=== PATIENT | female | born 1990 | race Caucasian/White ===

== ENCOUNTER 2024-03-17 12:32 | Outpatient (CLI) | payer OTHER, SELFPAY ==
--- NOTE | ~2024-03-17 | US_ITS ---
EXAMINATION: US OB <= 14 weeks fetus DATE: 03/17/2024 13:22 INDICATION: . Uncertain dates. TECHNIQUE: Real-time transabdominal and transvaginal pelvic ultrasound was performed. COMPARISON: None. FINDINGS: TRANSABDOMINAL ULTRASOUND: The uterus measures 10.4 x 7.7 x 9.5 cm. TRANSVAGINAL ULTRASOUND: There is an intrauterine gestational sac. The crown rump length measur es 4.8 cm, which correlates with an estimated gestational age of 11 weeks and 4 day(s) (+/-) 1 week(s ) and 0 day(s). heart motion is identified measuring 144 beats per minute (bpm) by M-mode Doppl er. The right ovary measures 4.0 x 1.9 x 2.3 cm. The left ovary measures 3.8 x 1.5 x 2.1 cm. There is no free fluid in the pelvis. IMPRESSION: 1. Single living intrauterine gestation with estimated date of delivery of 10/02/2024. Reviewed, dictated and finalized at location A. INSPECTOR IMPRESSION: 1. Single living intrauterine gestation with estimated date of delivery of 10/02.
== END 2024-03-17 12:33 | disposition home or self-care (01) ==
PROVIDERS: Visit Provider Obstetrics & Gynecology
DX: N94.89 Other specified conditions associated with female genital organs and menstrual cycle (principal)
CPT/HCPCS: 76801

== ENCOUNTER 2024-09-14 18:38 | Inpatient (IN) | payer OTHER, SELFPAY ==
[2024-09-14] VITALS (19 sets, daily range): BP systolic 99–110; BP diastolic 59–76; PULSE 68–109; TEMP 36.8; O2SAT 97–99; BMI 21.7
--- OUTSIDE RECORDS SUMMARY | 2024-09-14 18:44 | XMS_ITS | Encounter Summary ---
Author Organization [facility] Address [address] [place] [address] Care Team Providers Care Supervisor Ride Assembly Name Role Phone Unknown, Provider Primary Care Provider Unavaila ble Reason for Referral * (Routine) - Open Specialty Diagnoses / Procedures Referred By Contac t Referred To Contact Diagnoses Diet controlled gestational diabetes mellitus (GDM) in third trimester (HCC) Poor growth affecting management of mother, antepartum, single or unspecified fetus (HCC) 37 weeks gestation of (HCC) Procedures Biophysical Profile w NST Gwyn Lassiter MD [address] [facility] [employer] [address] [address] Phone: tel: fax: Referral ID Status Reason Start Date Expiration Date Visits Re quested Visits Authorized [id number] Open 09/14/2024 09/14/2025 3 3 * (Routine) - Open Specialty Diagnoses / Procedures Referred By Contac t Referred To Contact Diagnoses Diet controlled gestational diabetes mellitus (GDM) in third trimester (HCC) Poor growth affecting management of mother, antepartum, single or unspecified fetus (HCC) 37 weeks gestation of ([facility]) Procedures Biophysical Profile w JOYAT Gwyn Lassiter MD [address] [place] [address] Phone: tel: fax: Referral ID Status Reason Start Date Expiration Date Visits Re quested Visits Authorized [id number] Open 09/14/2024 09/14/2025 3 3 Reason for Visit * Reason Comments Ultrasound Follow-up Maternal Medicine Biophysical Profile Non-stress Test Diabetes * (Routine) - Open Specialty Diagnoses / Procedures Referred By Contac t Referred To Contact Diagnoses Diet controlled gestational diabetes mellitus (GDM) in third trimester (HCC) Poor growth affecting management of mother, antepartum, single or unspecified fetus (HCC) 37 weeks gestation of (HCC) Procedures Biophysical Profile w NST Gwyn Lassiter MD [address] [place] [address] Phone: tel: fax: Referral ID Status Reason Start Date Expiration Date Visits Re quested Visits Authorized [id number] Open 09/14/2024 09/14/2025 3 3 Encounter Details Date Type Department Care Team (Late st Contact Info) Description 09/14/2024 1:45 PM CDT Hospital Encounter [facility] Maternal & Care [address] [place] [address] Gwyn Lassiter MD [address] [facility] [address] [place] [address] Social History Tobacco Use Types Packs/Day Years Used Date Smoking Tobacco: Never Assessed AUDIT-C Answer Date Recorded Q1: How often do you have a drink containing alcohol? Never 08/12/2024 Q2: How many drinks containi ng alcohol do you have on a typical day when you are drinking? Patient does not drink Q3: How often do you have si x or more drinks on one occasion? Never 08/12/2024 Overall Financial Resource Strain (CARDIA) Answe r Date Recorded How hard is it for you to pa y for the very basics like food, housing, medical care, and heating? Not hard at all 08/12/2024 [facility] of Occupat ional Health - Occupational Stress Questionnaire Answer Date Recorded Do you feel stress - tense, restless, nervous, or anxious, or unable to sleep at night because your mind is troubled all the time - these days? Not at all 08/12/2024 Hunger Vital Sign Answer Date Recorded Within the past 12 months, y ou worried that your food would run out before you got the money to buy more. Never true 08/13/19 25 Within the past 12 months, t he food you bought just didn't last and you didn't have money to get more. Never true 08/12/2024 PRAPARE - Transportation Answer Date Re corded In the past 12 months, has l ack of transportation kept you from medical appointments or from getting medications? No 07/28 In the past 12 months, has l ack of transportation kept you from meetings, work, or from getting things needed for daily living? No 08/12/2024 Housing Stability Vital Sign Answer Rafael e Recorded In the last 12 months, was t here a time when you were not able to pay the mortgage or rent on time? No 08/12/2024 Number of Times Moved in the Last Year Not on fi le 08/12/2024 Homeless in the Last Year Not on file 2024 Estimated Date of Delivery Comme nts Yes 10/02/2024 Based on last me nstrual period of 12/27/2023 Sex and Gender Information Value Date Recorded Sex Assigned at Not on file Legal Sex Female 5:44 PM [employer] Gender Identity Not on file Sexual Orientation Not on file documented as of this encounter Last Filed Vital Signs Vital Sign Reading Time Taken Comments Blood Pressure 116/58 09/14/2024 2:15 PM CDT Pulse 64 09/14/2024 2:15 PM CDT Temperature - - Respiratory Rate - - Oxygen Saturation - - Inhaled Oxygen Concentration - - Weight 54.4 kg (120 lb) 09/14/2024 2:15 PM CDT Height - - Body Mass Index 22.67 09/07/2024 10:30 AM CDT documented in this encounter Progress Notes * Rosana Richmond RN - 09/14/2024 4:14 PM CDT OB office called regarding MFM recommendation to have pt be admitted to begin process for delivery this evening. Report given to OB office nurse-they will call L&D and notify of the pt coming in.Pt aware to go home to get her bags and go to the hospital for delivery. * Rhonda Donnelly RN - 09/14/2024 2:57 PM CDT Patient here today for NST/BPP, INTERNAL CONTROLS SPECIALIST, US performed at [place] 37w3d. Patient reports positive movement. Denies cramping, contractions, vaginal bleeding, and leakage of fluid. Patient denies headache, epigastric pain and visual changes. VS per flowsheet. See ultrasound and INTERNAL CONTROLS SPECIALIST reports for details and POC. Patient has no concerns today. Reports feeling well overall. NST reviewed by INTERNAL CONTROLS SPECIALIST. Rhonda Donnelly RN 09/14/2024 2:58 PM * Denise Cline APRN-REFUSE COLLECTOR - 09/14/2024 2:41 PM CDT WHNP follow up visit Kristen Medel is a 34 year old 37w3d. We are following her for GDM and SGA. She has no complaints today. She emailed blood sugar logs for review on Thursday. She reports good FM, no bleeding, no LOF, no DC, no cramps/contractions/pain/pressure, no CHA's, vision changes, or swelling. Genetic screening/testing: Low Risk NIPT, Female Her is complicated by: Patient Active Problem List Diagnosis Date Noted Gestational diabetes mellitus (GDM) in third trimester (HCC) 08/09/2024 Priority: Not Prioritized Exam: BP 116/58 Pulse 64 Wt 54.4 kg (120 lb) General: NAD Abdomen: soft, NT Extremities: equal in size and width bilaterally, NT, no sign of edema FHT: per US Urine dip: sample not yet produced Labs: Blood type: A+ Antibody screen: neg GTT -- 80 mg/l fasting; 200 mg/dl 1 hour; 168 mg/dl 2 hour; 129 mg/dl 3 hour GCT -- 151mg/dl US: Please see report for details. Impressions/Recs 1. IUP (Intrauterine ) at 37w3d 2. GDMA1 She emailed logs on Thursday and were reviewed at that time. She is currently diet controlled and no changes were indicated at that time. Logs reveal good glycemic control. Patient is reading labels and counting carbs. Will continue weekly review. After hours triage number provided S/p nutrition counseling at initial visit. We reviewed the target glucose ranges to minimize excessive growth and optimize outcomes. These are: Fasting 60-90 mg/dl; preprandial 60-100 mg/dl; and 1-hour postprandial <130 mg/dl. Antepartum testing Recommend BID kick counts. testing currently driven by SGA Serial Ultrasound assessment of growth is recommended. Timing of Delivery To be determined Route of delivery Vaginal delivery may be anticipated unless the fetus is excessively large or there is an abnormal presentation. Diabetes is associated with about a six-fold risk for shoulder dystocia. Operative vaginal deliveries should be approached with caution. Glucose control in labor During labor, capillary glucose values should be checked every 1-2 hours (depending on their stability). Maintenance fluids with 5% dextrose are infused to prevent starvation ketosis. If the glucose values exceed 110 mg/dl, an insulin infusion is recommended. Long-term diabetes surveillance The risk of this patient developing diabetes outside of over the next five years may be as high as 50%. I recommend that she have a 2 hr 75 gram load gtt at 6 to 8 weeks and counseling about ways to minimize her risk. If her testing is normal, annual glucose screening by her primary care physician is advised. In any future pregnancies, she should have a HGBA1C drawn with her p renatal panel and if wnl, then a 1 hr gtt at 14-18 weeks. If WNL, then repeat 1 hr gtt at 26-28 weeks. 3. SGA MCA dopplers abnormal today D/W Dr. Hardin and delivery is recommended. OB office aware and will notify the hospital about patient. 4. We reviewed kick counts (BID), as well as labor and preeclampsia signs and symptoms. 5. RTC: delivery recommended 6. Keep all appointments with primary OB I spent 30 minutes with the patient, greater than 50% of the time was spent face to face in discussion with the patient the remainder of the time was spent in chart prep and data review. The patient is to follow up with her primary obstetrical care provider for her routine care and acute OB care including delivery as clinically indicated. Once again, we appreciate the opportunity to assist you in the care of your patient. If issues arise for which I can be of help before her next visit here, please contact me directly, or contact one of the [facility] physicians. MONTSERRAT Chatman 09/14/2024 2:42 PM * Sugar Ying - 09/14/2024 2:20 PM CDT Reviewed log received yesterday. Did not review logs today. A1GDM presents with her mother for assessment. Has no questions or concerns at this time. documented in this encounter Plan of Treatment Scheduled Orders Name Type Priority Associated Diagnoses Orde r Schedule Biophysical Profile w NST MATRNL MED Routine Diet controlled gestational diabetes mellitus (GDM) in third trimester (HCC) Poor growth affecting management of mother, antepartum, single or unspecified fetus (HCC) 37 weeks gestation of (HCC) E- 7 Days for 3 Occurrences starting 09/14/2024 until 09/14/2025, 1 completed documented as of this encounter Procedures Procedure Name Priority Date/Time Associated Diagnosis Comments BIOPHYSICAL PROFILE W NST Routine 09/14/2024 3:33 PM CDT Diet controlled gestational diabetes mellitus (GDM) in third trimester (HCC) Poor growth affecting management of mother, antepartum, single or unspecified fetus (HCC) 37 weeks gestation of (HCC) documented in this encounter Results * Biophysical Profile w NST (09/14/2024 3:33 PM CDT) Linked Results Indication ======== Gestational diabetes mellitus (GDM) A1 Small for gestational age (SGA) growth History ====== OB History 1 Lab Tests Test Date Result NIPT Low risk, Female Maternal Assessment Physical Exam Height 155 cm, 5 ft 1 in. Weight 54 kg, 120 lb. Initial weight 52 kg, 115 lb. BMI 22.67 kg/m . Initial BMI 21.73 kg/m . Weight gain 2 kg, 5 lb Method ====== Transabdominal ultrasound examination. View: Sufficient ========= Gomez . Number of fetuses: 1 Dating ====== Date Details Gest. age MARLON LMP 12/27/2023 37 w + 3 d 10/02/2024 Stated MARLON 37 w + 3 d 10/02/2024 Assigned dating based on the LMP, selected on 08/09/2024 37 w + 3 d 10/02/2024 General Evaluation Cardiac activity present. FHR 143 bpm. Presentation: cephalic Placenta: Placental site: anterior Amniotic Fluid Assessment ==== Amount of AF: normal MVP 3.4 cm. ALICIA 9.8 cm. Q1 3.4 cm, Q2 1.2 cm, Q3 2.0 cm, Q4 3.1 cm Biophysical Profile 2: breathing movements 2: Gross body movements 2: tone 2: Amniotic fluid volume NST: reactive 10/10 Biophysical profile score Non Stress Test NST interpretation: reactive. Baseline FHR 130 bpm. Baseline variability: moderate. Accelerations: present. Decelerations: absent. Uterine activity: absent Biometry BPD 90.3 mm 36w 4d 45% Hadlock HC 310.5 mm 34w 5d <1% Hadlock AC 297.8 mm 33w 5d <1% Hadlock Femur 68.0 mm 35w 0d 4% Hadlock Humerus 56.8 mm 33w 0d 1% Freeman HC / AC 1.04 Weight Calculation: EFW 2,435 g 5% Hadlock EFW (lb,oz) 5 lb 6 oz EFW by Hadlock ([id number]) SGA Growth Overview Exam date GA BPD (mm) HC (mm) AC (mm) FL (mm) HL (mm) EFW (g) 08/09/2024 32w 2d 80.9 48% 290 9% 264.1 8% 61.5 27% 51.9 8% 1732 15% 08/31/2024 35w 3d 85.9 32% 305.7 3% 287.1 3% 66.7 18% 54.8 3% 2210 9% 09/14/2024 37w 3d 90.3 45% 310.5 <1% 297.8 <1% 68 4% 56.8 1% 2435 5% Anatomy The following structures appear normal: Abdomen Stomach. Kidneys. Bladder. sex: female. Doppler Umbilical Artery: normal PI 0.66 18% Anita S / D 1.93 20% Anita Mid Cerebral Artery: abnormal PI 1.20 3% Ebbing PS 68.08 cm/s PS 1.19 MoM CPR PI 1.82 22% Ebbing Impression ========= Single, live intrauterine at 37w 3d The size is SGA. The amniotic fluid volume is normal. The biophysical profile is 10/10. The umbilical artery Doppler is normal. The MCA Doppler is abnormal, reduced PI indicative of cephalization of flow. Comment ======== ultrasound alone cannot detect all structural, genetic, or functional , placental, or maternal abnormalities Follow-up ======== Delivery recommended tonight due to abnormal MCA. Coding ====== Procedures 58338: [place] [address]: Biophysical Profile W NST 85038: Umbilical Doppler 28598: MCA Doppler [employer] PACS Anatomical Region Laterality Modality Other 09/14/2024 3:33 PM CDT us Gwyn Lassiter MD [facility] ORDERABLES Edited Result - Final documented in this encounter Visit Diagnoses Diagnosis Diet controlled gestational diabetes mellitus (GDM) in third trimester (HCC)- Primary Poor growth affecting management of mother, antepartum, single or unspecified fetus (HCC) Encounter for ultrasound ([facility]) Encounter for routine screening for malformation using ultrasonics 37 weeks gestation of (HCC) state, incidental Encounter for other screening follow-up ([facility]) documented in this encounter Care Teams Supervisor Ride Assembly Relationship Specialty Start Date End Date Unknown, Provider PCP - General 07/28/24 documented as of this encounter
--- OUTSIDE RECORDS SUMMARY | 2024-09-14 18:44 | XMS_ITS | Clinical Summary ---
Author Organization [facility] Address [address] [place] [address] Care Team Providers Care Paint Mixer Hand Name Role Phone Unknown, Provider Primary Care Provider Unavaila ble Source Comments [facility],non-owned Affiliates and Associated Physician Practices is amultiple site organization consisting of ambulatory clinics and hospital sitesin [place], [place], [place] and [place]. This disclosure is being madepursuant to the Care Everywhere program and may not contain all information available regarding this patient. Last updated 17.[facility] Allergies Active Allergy Reactions Criticality Noted Date Comments Amoxicillin Urticaria Medium 07/28/2024 Medications * Be aware that medications may not be up to date on this document. Alwaysverify current medications with the patient. Vit-Fe Fumarate-FA ( vitamin) 28-0.8 MG tablet Take 1 (one) tablet by mouth once daily Active ferrous gluconate 324 (38 Fe) MG tablet Take 1 (one) tablet by mouth once daily OTC Active Active Problems Problem Noted Date Diagnosed Date [facility]ational diabetes [facility] Estimated Date of Delivery Comme nts Yes 10/02/2024 Based on last me nstrual period of 12/27/2023 Encounters Date Type Department Care Team Description 09/14/2024 1:45 PM CDT Hospital Encounter [facility] Women's Health Maternal & Care [address] [place] [address] Gwyn Lassiter MD 09/07/2024 9:38 AM CDT - 09/07/2024 11:59 PM CDT Hospital Encounter [facility] Maternal & Care [address] [place] [address] Gwyn Lassiter MD Discharge Disposition: Home or Self Care 08/31/2024 9:36 AM CDT - 08/31/2024 11:59 PM CDT Hospital Encounter [facility] Maternal & Care [address] [place] [id number] Maikel Waller DO Head, Bailee Vick MD 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 [place] [id number] Carter Avelar MD Discharge Disposition: Home or Self Care 08/24/2024 12:47 PM CDT Hospital Encounter [facility] [address] [place] [address] Carter Avelar MD Discharge Disposition: Home or Self Care 08/24/2024 Travel 08/17/2024 12:52 PM CDT - 08/17/2024 11:59 PM CDT Hospital Encounter [facility] UN[facility] [address] [place] [id number] Carter Avelar MD Discharge Disposition: Home or Self Care 08/17/2024 12:51 PM CDT Hospital Encounter [facility]ATION UN[facility] [address] [place] [address] Carter Avelar MD Discharge Disposition: Home or Self Care 08/17/2024 12:51 PM CDT Hospital Encounter [facility]/ [facility] [address] [place] [address] Carter Avelar MD Discharge Disposition: Home or Self Care 08/17/2024 12:50 PM CDT Hospital Encounter [facility] UN[facility] [address] [place] [address] Adalid Van MD Discharge Disposition: Home or Self Care 08/17/2024 Travel 08/11/2024 Telephone [facility] [address] [place] [address] Analy Mckeon RN Scheduling 08/09/2024 1:34 PM CDT - 08/09/2024 11:59 PM CDT Hospital Encounter [facility] Maternal & Care [address] [place] [address] Ladi Abdalla MD Discharge Disposition: Home or Self Care 07/28/2024 11:05 AM CDT - 07/28/2024 11:59 PM CDT Hospital Encounter [facility] Maternal & Care [address] [place] [address] Jose, Bailee Vick MD Discharge Disposition: Home or Self Care 07/25/2024 Telephone [facility] Maternal & Care [address] [place] [id number] Maria Fernanda rPatt Appointment from Last 3 Months Social History Tobacco Use Types Packs/Day Years [...] and heating? 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 Gender Identity Not on file Sexual Orientation Not on file Last Filed Vital Signs Vital Sign Reading Time Taken Comments Blood Pressure 116/58 09/14/2024 2:15 PM CDT Pulse 64 09/14/2024 2:15 PM CDT Temperature - - Respiratory Rate 16 07/28/2024 11:13 AM CDT Oxygen Saturation - - Inhaled Oxygen Concentration - - Weight 54.4 kg (120 lb) 09/14/2024 2:15 PM CDT Height 154.9 cm (5' 1) 09/07/2024 10:30 AM CDT Body Mass Index 22.67 09/07/2024 10:30 AM CDT Plan of Treatment Health Maintenance Due Date Last Done Comments HIV SCREENING 09/04/2007 HEPATITIS C SCREENING 08/30/2010 DTAP/TDAP/TD VACCINES (1 - Tdap) 09/04/2011 HEPATITIS B VACCINE (1 of 3 - 19+ 3-dose series) 09/04/2011 PAP SMEAR 2013 COVID-19 VACCINE (2023-2 5 season) 2023 DEPRESSION SCREENING 03/30/2024 OB-ONE HOUR GLUCOSE 06/26/2024 OB-TDAP CURRENT 07/03/2024 OB-RHOGAM INJECTION 07/10/2024 OB-GROUP B STREP SCREEN 08/28/2024 INFLUENZA VACCINE (Season Ended) 2024 ZOSTER VACCINE (1 of 2) 2042 HIB VACCINE Aged Out No longer eligi ble based on patient's age to complete this topic HPV VACCINE Aged Out No longer eligi ble based on patient's age to complete this topic MENINGOCOCCAL (Group B) VACC INE SHARED DECISION-MAKING Aged Out No longer eligibl e based on patient's age to complete this topic MENINGOCOCCAL GROUPS A/C/Y/W VACCINE Aged Out No longer eligible b ased on patient's age to complete this topic PNEUMOCOCCAL VACCINE Aged Out No long er eligible based on patient's age to complete this topic Respiratory Syncytial Virus (RSV) Vaccine Pt: or over 60 yrs (No Doses Required) Completed Procedures Procedure Name Priority Date/Time Associated Diagnosis Comments BIOPHYSICAL PROFILE W NST Routine 09/14/2024 3:33 PM CDT Diet controlled gestational diabetes mellitus (GDM) in third trimester (HCC) Poor growth affecting management of mother, antepartum, single or unspecified fetus (HCC) 37 weeks gestation of (HCC) BIOPHYSICAL PROFILE W NST Routine 09/07/2024 9:42 AM CDT Diet controlled gestational diabetes mellitus (GDM) in third trimester (HCC) Poor growth affecting management of mother, antepartum, single or unspecified fetus (HCC) 36 weeks gestation of (HCC) Encounter for ultrasound (HCC) SONOGRAM - COMPLETE Routine 08/31/2024 1 1:29 AM CDT Diet controlled gestational diabetes mellitus (GDM) in third trimester (HCC) Poor growth affecting management of mother, antepartum, single or unspecified fetus (HCC) 35 weeks gestation of (HCC) Encounter for ultrasound (HCC) SONOGRAM - COMPLETE Routine 08/24/2024 1 :07 PM CDT Diet controlled gestational diabetes mellitus (GDM) in third trimester (HCC) Poor growth affecting management of mother, antepartum, single or unspecified fetus (HCC) 35 weeks gestation of (HCC) BIOPHYSICAL PROFILE W NST Routine 08/17/2024 2:02 PM CDT Diet controlled gestational diabetes mellitus (GDM) in third trimester (HCC) URINALYSIS - POCT (IP) BEAKER INTERFACE Routine 08/17/2024 1:33 PM CDT SONOGRAM - COMPLETE Routine 08/09/2024 1 :45 PM CDT 32 weeks gestation of (HCC) Gestational diabetes mellitus (GDM) in third trimester, gestational diabetes method of control unspecified (HCC) from Last 3 Months Results * Biophysical Profile w NST (09/14/2024 3:33 PM CDT) Only the most recent of3 resultswithin the time period is included. Linked Results Indication ======== Gestational diabetes mellitus [...] tone 2: Amniotic fluid volume NST: reactive 01/06 Biophysical profile score Non Stress Test NST [...] 5 lb 6 oz EFW by Hadlock ([id number]) SGA Growth Overview Exam date GA BPD [...] due to abnormal MCA. Coding ====== Procedures 61906: [place] [address]: Biophysical Profile W NST 05916: Umbilical Doppler 20741: MCA Doppler FathomDB PACS Anatomical Region Laterality Modality Other 09/14/2024 3:33 PM CDT Gwyn Lassiter MD [facility] ORDERABLES Edited Result - Final * SONOGRAM - COMPLETE (08/31/2024 11:29 AM CDT) Only the most recent of3 resultswithin the time period is included. Linked Results Indication ======== Gestational diabetes, a1 Small for gestational age fetus on 08/09 (AC 8%, EFW 15%) Incomplete anatomy History ====== OB History 1 Lab Tests Test Date Result NIPT Low risk, Female Maternal Assessment = Physical Exam Height 155 cm, 5 ft 1 in. Weight 55 kg, 121 lb. Initial weight 52 kg, 115 lb. BMI 22.86 kg/m . Initial BMI 21.73 kg/m . Weight gain 3 kg, 6 lb Method ====== Transabdominal ultrasound. View: Sufficient ========= Gomez . Number of fetuses: 1 Dating ====== Date Details Gest. age MARLON LMP 12/27/2023 35 w + 3 d 10/02/2024 Stated MARLON 35 w + 3 d 10/02/2024 Assigned dating based on the LMP, selected on 08/09/2024 35 w + 3 d 10/02/2024 General Evaluation Cardiac activity present. FHR 152 bpm. Presentation: cephalic Placenta: Placental site: anterior Amniotic Fluid Assessment ===== Amount of AF: normal MVP 5.0 cm. ALICIA 15.4 cm. Q1 3.2 cm, Q2 5.0 cm, Q3 4.6 cm, Q4 2.5 cm Biophysical Profile 2: breathing movements 2: Gross body movements 2: tone 2: Amniotic fluid volume NST: reactive 01/06 Biophysical profile score Non Stress Test NST interpretation: reactive. Baseline FHR 130 bpm. Baseline variability: moderate. Accelerations: present. Decelerations: absent Biometry BPD 85.9 mm 34w 4d 32% Hadlock HC 305.7 mm 34w 0d 3% Hadlock AC 287.1 mm 32w 5d 3% Hadlock Femur 66.7 mm 34w 2d 18% Hadlock Humerus 54.8 mm 31w 6d 3% Fereman HC / AC 1.06 Weight Calculation: EFW 2,210 g 9% Hadlock EFW (lb,oz) 4 lb 14 oz EFW by Hadlock ([id number]) SGA Growth Overview = Exam date GA BPD (mm) HC (mm) AC (mm) FL (mm) HL (mm) EFW (g) 08/09/2024 32w 2d 80.9 48% 290 9% 264.1 8% 61.5 27% 51.9 8% 1732 15% 08/31/2024 35w 3d 85.9 32% 305.7 3% 287.1 3% 66.7 18% 54.8 3% 2210 9% Anatomy The following structures appear normal: Abdomen Stomach. Kidneys. Bladder. sex: female. Doppler Umbilical Artery: normal PI 0.82 47% Anita S / D 2.29 38% Anita Mid Cerebral Artery: normal PI 1.78 32% Ebbing PS 59.36 cm/s PS 1.14 MoM CPR PI 2.17 39% Ebbing Impression ========= Single, live intrauterine at 35w 3d The size is SGA. The amniotic fluid volume is normal. The biophysical profile is 10/10. The umbilical artery Doppler is normal. The MCA Doppler is normal. Follow-up ======== Continue weekly testing with BPP/Dopplers Repeat ultrasound evaluation of growth is recommended in 2-3 weeks. Coding ====== Procedures 65617: [place] [address]: Biophysical Profile W NST 04816: Umbilical Doppler 06939: MCA Doppler [facility] FathomDB PACS Anatomical Region Laterality Modality Other 08/31/2024 11:2 9 AM CDT Beckie Pichardo MD [facility] ORDERABLES Edited Result - Final * (ABNORMAL) URINALYSIS - POCT (IP) BEAKER INTERFACE (08/17/2024 1:33 PM CDT) Color UA POCT Dark Yellow Straw, Yellow, Dark Yellow, Light Yellow 08/17/2024 1:35 PM CDT [facility] Clarity UA POCT Clear Clear 1:35 PM CDT [facility] Specific [place] UA POCT 1.020 1.005 - 1.030 08/17/2024 1:35 PM CDT [facility] pH UA POCT 6.5 5.0 - 8.0 pH 08/17/2024 1:35 PM CDT [facility] Protein UA POCT Negative Negative 1:35 PM CDT [facility] Blood UA POCT Negative Negative 08/17/2024 1:35 PM CDT [facility] Leukocyte UA POCT 1+(A) Negative 08/17/2024 1:35 PM CDT [facility] Nitrite UA POCT Negative Negative 1:35 PM CDT [facility] Glucose UA POCT Negative Negative 1:35 PM CDT [facility] Ketone UA POCT 3+(A) Negative 08/17/2024 1:35 PM CDT [facility] Bilirubin UA POCT Negative Negative 08/17/2024 1:35 PM CDT [facility] Urobilinogen UA POCT 1.0 0.1 - 1.0 EU/dL 08/17/2024 1:35 PM CDT [facility] Urine URINE / Unknown 08/17/2024 1 :33 PM CDT 08/17/2024 1:35 PM CDT Adalid Van MD LAB - POINT OF CARE OR DERABLES Final Result Performing Organization Address City/State/[facility] Co de Phone Number [facility] [address] [place] [address] from Last 3 Months Insurance [employer] Care Teams Paint Mixer Hand Relationship Specialty Start Date End Date Unknown, Provider PCP - General 07/28/24
--- NOTE | 2024-09-14 19:35 | LDADM ---
This patient, Kristen Medel, was admitted to Labor/Delivery/Recovery 107 on 09/14/24 at 18:38. Plans for labor, pain management and were discussed with patient. Patient/family oriented to hospital policies and general routines including ID bracelet, bed and alarms, visiting hours, pain management, procedures, bathroom and other care routines, personal items, smoking policy, room service/diet and guest tray routines, security routines, and visiting hours. Patient/Family are encouraged to report perceived risks to care and to ask questions if they do not understand what they are told or what they should do. See OBIX for further documentation.
[2024-09-14 19:54] LABS: Basophils Percent Auto 0.3 % (0.2-1.2); Eosinophils Percent Auto 0.2 % (0-4.4); Hemoglobin 11.6 g/dL (12.0-15.0); Immature Granulocyte Absolute 0.04 K/mm3 (0.00-0.031); Immature Granulocyte Percent A 0.4 % (0-0.5); Lymphocytes Absolute Auto 1.48 K/mm3 (0.9-3.2); Lymphocytes Percent Auto 14.2 % (18.3-44.2); Mean Corpuscular HGB Conc 34.1 g/dl (32-36); Mean Corpuscular Volume 93.9 fl (80-100); Mean Platelet Volume 10.4 fl (7.4-10.4); Monocytes Absolute Auto 0.4 K/mm3 (0.1-0.6); Neutrophils Absolute Auto 8.4 K/mm3 (1.3-6.7); Neutrophils Percent Auto 80.9 % (45.5-73.1); Platelet Count Result 222 k/mm3 (150-375); Red Blood Count 3.62 M/mm3 (4.2-5.4); Red Cell Distribution Width 12.7 % (11.5-14.5); White Blood Count 10.4 K/mm3 (4.5-10.0)
[2024-09-14] MEDS: DINOPROSTONE 10 MG VAG INSERT VAGINAL (20:05)
[2024-09-14] MEDS: LACTATED RINGERS 1,000 ML 125 ML IV CONT (20:06)
[2024-09-14] MEDS: ceFAZolin 2 GM/D5W 50 ML 2 GM/50 ML BAG IVPB (20:14)
[2024-09-14 20:22] LABS: Syphilis IgG/IgM Antibody Non-Reactive (Nonreactive)
[2024-09-14 21:05] LABS: Glucose Point of Care 104 mg/dl (65-105)
[2024-09-15] VITALS (187 sets, daily range): BP systolic 83–134; BP diastolic 44–80; PULSE 56–143; RESP 16; TEMP 36.7–36.9; O2SAT 93–100
[2024-09-15 00:04] LABS: Glucose Point of Care 89 mg/dl (65-105)
--- NOTE | 2024-09-15 01:05 | P.PNAN_ITS ---
Anes - Eval Pre Procedure Procedure: labor epidural Date/Time: 09/15/24 01:05 Surgeon: aba Preop Diagnosis: pain during labor Pre Op Diagnosis: IOL Patient Data Age: 34 Gender: F Height: 1.57 m Weight: 54 kg Last Vital Signs Temp 36.9 C 09/15/24 00:30 Pulse 76 09/15/24 01:01 BP 111/61 09/15/24 01:01 Pulse Ox 98 09/14/24 19:59 O2 Del Method Room Air 09/14/24 19:35 Allergies Allergy/AdvReac Type Severity Reaction Status Date / Time amoxicillin Allergy Severe Hives Verified 09/14/24 11:17 Home Medications ?Medication ?Instructions ?Recorded ?Confirmed ?Type vits no.126-ferrous fum 1 tablet PO DAILY 03/28/24 09/14/24 History 28 mg iron-folic acid 800 mcg tablet (Classic ) ferrous sulfate 325 mg (65 mg 325 mg PO DAILY 08/01/24 09/14/24 History iron) tablet (Feosol) Laboratory Tests 09/14/24 09/14/24 09/15/24 19:33 21:00 00:01 WBC 10.4 H K/mm3 (4.5-10.0) RBC 3.62 L M/mm3 (4.2-5.4) Hgb 11.6 L g/dL (12.0-15.0) Hct 34.0 L % (37.0-47.0) MCV 93.9 fl (80-100) MCH 32.0 pg (26-34) MCHC 34.1 g/dl (32-36) RDW 12.7 % (11.5-14.5) Plt Count 222 k/mm3 (150-375) MPV 10.4 fl (7.4-10.4) Immature Gran % (Auto) 0.4 % (0-0.5) Neut % (Auto) 80.9 H % (45.5-73.1) Lymph % (Auto) 14.2 L % (18.3-44.2) [place] % (Auto) 4.0 % (2.6-8.5) Eos % (Auto) 0.2 % (0-4.4) Baso % (Auto) 0.3 % (0.2-1.2) Lymph # (Auto) 1.48 K/mm3 (0.9-3.2) [place] # (Auto) 0.4 K/mm3 (0.1-0.6) Eos # (Auto) 0.0 K/mm3 (0-0.3) Baso # (Auto) 0.0 K/mm3 (0.0-0.1) Abs Immat Gran (auto) 0.04 H K/mm3 (0.00-0.031) Absolute Neuts (auto) 8.4 H K/mm3 (1.3-6.7) Absolute Nucleated RBC 0.000 K/mm3 (0.0-0.012) Nucleated RBC % 0.0 % (0.0-0.2) POC Capillary Glucose 104 mg/dl 89 mg/dl (65-105) (65-105) Syphilis IgG/IgM Ab Non-reactive (Nonreactive) Blood Type A Positive Antibody Screen Negative Patient hx anesthesia problems: none Family hx anesthesia problems: none Results Review: All pre-operative results and documents have been reviewed as part of the pre- operative evaluation. [facility] Past Medical History Medical History (Updated 09/14/24 @ 18:39 by Beckie Pichardo MD) Gestational diabetes Suppression of menses Family History Family History Other Unknown family medical history Social History Social History Smoking status: Never smoker Alcohol intake: never Substance use: never Substance use type: does not use Do You Feel Safe in your Home?: Yes Lack of Transportation: No Lack of Food: Never True Current Housing: I Have Housing Concerned About Future Housing: No Difficulty Paying Gas/Electric Bills: No Difficulty Paying for Meds: No Currently Unemployed: No Education: Bachelor's Degree Difficulty w/ Childcare or Family Care: No Living arrangements: with family Occupation/Education: occupation 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
[2024-09-15] MEDS: ceFAZolin 1 GM/NS 50 ML 1 GM/50 ML BAG IVPB ×2 (03:52→11:46)
[2024-09-15 03:59] LABS: Glucose Point of Care 89 mg/dl (65-105)
--- NOTE | 2024-09-15 07:04 | PM.IMHP ---
H&P: HPI History of Present Illness Date/Time: 09/15/24 07:05 Chief Complaint: IUGR w/ abnormal dopplers Narrative: Kristen is a 34yo @ 37.3wks who presented for IOL after MFM visit. She has been being monitored for IUGR and A1GDM. Dopplers/ANT had been reassuring until today. Today her dopplers were abnormal and her growth declined, EFW 5%, AC/HC <1%ile and MFM recommended IOL today. She reports good movement. No ctx, vb, lof. Her is complicated by: - A1GDM; checking sugars - IUGR; AC 5%ile, HC/AC <1%ile; weekly ANT/dopplers w/ MFM - GBS positive Review of Systems Constitutional: Constitutional: Denies chills, Denies fever(s) and Denies headache(s) Eyes: Eyes: Denies change in vision ENT: Denies headache(s) Cardiovascular: Cardiovascular: Denies chest pain and Denies dyspnea Respiratory: Respiratory: Denies dyspnea Genitourinary: Genitourinary: Denies abnormal vaginal bleeding and Denies vaginal discharge Neurologic: Denies headache(s) Psychiatric: Psychiatric: Denies anxiety and Denies depression [facility] Past Medical History Medical History (Updated 09/14/24 @ 18:39 by Beckie Pichardo MD) Gestational diabetes Suppression of menses Family History Family History Other Unknown family medical history Social History Social History Smoking status: Never smoker Alcohol intake: never Substance use: never Substance use type: does not use Do You Feel Safe in your Home?: Yes Lack of Transportation: No Lack of Food: Never True Current Housing: I Have Housing Concerned About Future Housing: No Difficulty Paying Gas/Electric Bills: No Difficulty Paying for Meds: No Currently Unemployed: No Education: Bachelor's Degree Difficulty w/ Childcare or Family Care: No Living arrangements: with family Occupation/Education: occupation 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 Gender identity (if verbalized by the patient): Female Sexual Orientation (if Verbalized by the Patient): Straight or Heterosexual Spiritual care concerns: No Meds Home Medications and Allergies Home Medications ?Medication ?Instructions ?Recorded ?Confirmed ?Type vits no.126-ferrous fum 1 tablet PO DAILY 03/28/24 09/14/24 History 28 mg iron-folic acid 800 mcg tablet (Classic ) ferrous sulfate 325 mg (65 mg 325 mg PO DAILY 08/01/24 09/14/24 History iron) tablet (Feosol) Allergies Allergy/AdvReac Type Severity Reaction Status Date / Time amoxicillin Allergy Severe Hives Verified 09/14/24 11:17 Exam Const: General: cooperative, healthy appearing, comfortable and no acute distress Orientation/consciousness: patient oriented x3 Resp: Effort & Inspection: normal respiratory effort Cardio: Rate: regular rate GI: GI Palp: No abdominal tenderness : Other: FHT's: 130's/ mod beckie/ + accels/ no decels - cat 1 TOCO: ctxs q3min Cervix: 2/80/-2, ant, soft Membranes: AROM, clear 0710 Presentation: cephalic Skin: General skin exam: normal color Neuro: General: patient oriented x3 Extrem: General: normal to inspection Psych: Appearance: grossly normal Affect: normal affect Attitude: cooperative Assessment and Plan Assessment and plan (1) IUGR (intrauterine growth restriction): Status: Acute (2) Gestational diabetes: Code(s): O24.419 - Gestational diabetes mellitus in , unspecified control Status: Acute Plan - Severe IUGR with abnormal dopplers today; MFM recommending IOL today - s/p Cervidil for cervical ripening over night - AROM, high dose pitocin today - Continuous monitoring overnight - GBS positive; amox allergy, will do ancef - Anesthesia consult PRN pain - BS q4h in latent phase, q2h in active phase, goal <120
[2024-09-15 08:13] LABS: Glucose Point of Care 107 mg/dl (65-105)
[2024-09-15] MEDS: OXYTOCIN 30 UNITS/NS 500 ML 30 UNITS/500 ML BAG IV CONT (09:10)
--- NOTE | 2024-09-15 11:53 | PM.OBPNLAB ---
Pain Control Date/time seen: 09/15/24 11:53 Pain control: epidural Pelvic Exam Dilation (cm): 3 Effacement (%): 80 station: -2 Amniotic membrane status: Ruptured Contractions Monitor mode: Internal (placed on this exam) Contraction frequency: 4 Status status: Category l Assessment and Plan Pitocin rate (mU/min): 4 Assessment: induction ongoing Plan: continuous present management Comments: BS 107 gbs ppx w/ ancef iupc placed on this exam continue increasing pitocin per protocol
[2024-09-15 11:56] LABS: Glucose Point of Care 82 mg/dl (65-105)
[2024-09-15] MEDS: SODIUM CHLORIDE 0.9% IV 300 ML I-UTERINE (14:28)
[2024-09-15 16:04] LABS: Glucose Point of Care 89 mg/dl (65-105)
--- NOTE | 2024-09-15 17:51 | PM.OBPRVD ---
OB - Vaginal Delivery Note Procedure Delivery date: 09/15/24 Events: Gestational Diabetes (A1), Intrauterine Growth Restriction (IUGR) and Positive Group B Strep (GBS) Induction method: Per Cervidil Protocol Delivery augmentation: Rupture of Membranes and Pitocin Delivery monitor: External FHT and Internal Uterine Route of delivery: Episiotomy description: None Laceration Description: Labial (left) Specimen: Yes (placenta) Anesthesia type: Epidural Disposition: Floor Complications: No immediate complications Baby Date of : 09/15/24 Time of : 17:37 Gestational Age by Date: 37 (.4) Infant gender: Female presentation: vertex position: Left Occiput Anterior Placenta delivery description: Expressed Cord Vessel Description: 3 Vessels score one minute: 8 score five minutes: 9 Narrative: Kristen rapidly progressed from 5cm to completely dilated. She pushed with good maternal effort for approximately 15 minutes. She delivered the head over intact perineum. No nuchal cord was palpated. She easily delivered the infant's shoulders and body without complication. The was immediately placed skin to skin and had spontaneous cry. Delayed cord clamping was performed. There were umbilical cord was then doubly clamped and cut by dad. A segment of the cord was collected for cord gases. The remaining cord blood was collected for typing. With Pitocin running and gentle downward traction on the cord, the placenta delivered without complication. Bimanual massage was performed and good uterine tone with minimal bleeding was noted. She was examined and a left labial laceration was identified. The labial laceration was repaired using 2-0 Vicryl in a running fashion and good hemostasis was noted. Bimanual massage was once again performed and a small amount of clots was removed but good uterine tone with minimal bleeding was then noted. Sponge, lap, instrument, and needle counts were correct at the end of the procedure. Mom and baby were left bonding in the birthing suite in stable condition.
[2024-09-15] MEDS: OXYTOCIN 30 UNITS/NS 500 ML 30 UNITS/500 ML BAG 125 UNITS IV CONT (18:17)
--- NOTE | 2024-09-15 18:20 | S_PTH ---
PATIENT: Kristen Medel LOC: [facility] U#:[id number] AGE/SX: 34/F ROOM: 284 RE09/14/[address]: Claus Jules MD : 1990 BED: 00 DIS: 09/17/2024 SPEC #: [id number] RECD: 09/16/24 13:27 STATUS: ELSIE REQ #: [id number] RAFA: 09/15/24 18:[address]: Beckie Pichardo DEPT: [facility] Surgical RECD BY: Annie Olvera ENTERED: 09/16/24 13:28 SP TYPE: Surgical OTHR DR: UNKNOWN,DOCTOR Tissues: A - Placenta Procedures: Hematoxylin and Eosin Stain Gross and Microscopic Level 5
[2024-09-15] MEDS: BENZOCAINE 20% AER SPR (*SP) 56 GM CAN 1 SPRAY TOPICAL (19:21)
[2024-09-15] MEDS: WITCH HAZEL 40 PADS 1 PAD TOPICAL (19:21)
[2024-09-16] VITALS: BP 106/57; PULSE 68; RESP 16; TEMP 36.7; O2SAT 98
[2024-09-16 03:50] VITALS: BP 112/62; PULSE 70; RESP 16; TEMP 36.8; O2SAT 99
[2024-09-16] MEDS: ACETAMINOPHEN 325 MG TABLET 650 MG PO (03:50)
[2024-09-16 05:31] LABS: Hematocrit 29.8 % (37.0-47.0); Hemoglobin 9.9 g/dL (12.0-15.0); Mean Corpuscular HGB Conc 33.2 g/dl (32-36); Mean Corpuscular Hemoglobin 31.9 pg (26-34); Mean Corpuscular Volume 96.1 fl (80-100); Mean Platelet Volume 10.6 fl (7.4-10.4); Platelet Count Result 192 k/mm3 (150-375); Red Cell Distribution Width 12.9 % (11.5-14.5); White Blood Count 16.3 K/mm3 (4.5-10.0)
--- NOTE | 2024-09-16 07:47 | WPDANLDPN2 ---
Anes-Prog Note L&D Date/Time: 09/16/24 07:47 Comfortable throughout: labor and delivery Neuraxial method: epidural Epidural/Spinal procedure site: clean & non-tender Neuro status: Neuro function grossly intact. Cardiovascular status: normal Respiratory status: normal Airway patency: baseline Mental status: baseline Vital Signs: Last Vital Signs Temp 36.8 C 09/16/24 03:50 Pulse 70 09/16/24 03:50 Resp 16 09/16/24 03:50 BP 112/62 09/16/24 03:50 Pulse Ox 99 09/16/24 03:50 O2 Del Method Room Air 09/14/24 19:35 Pain score (VAS): 0 I/O: Intake & Output 09/15/24 09/15/24 09/16/24 15:59 23:59 07:59 Output Total 75 Balance -75 Patient feedback: Patient satisfied with anesthetic care.
--- NOTE | 2024-09-16 08:00 | P.PNOB_ITS ---
OB - PN: Subj Subjective Date/time seen: 09/16/24 08:00 Patient comments: no complaints, pain well controlled and tolerating diet [employer] feeding status: exclusively breast feeding Narrative: patient doing well this AM. No complaints. Pain is well controlled. She reports minimal bleeding. She is ambulating and voiding without difficulty. She is tolerating PO. She denies N/V, fever, chills. OB - PN: Obj Data Labs 09/16/24 03:41 Labs: Laboratory Results - last 24 hr 09/15/24 09/15/24 09/15/24 08:06 11:53 16:01 WBC RBC Hgb Hct MCV MCH MCHC RDW Plt Count MPV POC Capillary Glucose 107 H 82 89 09/16/24 03:41 WBC 16.3 H RBC 3.10 L Hgb 9.9 L Hct 29.8 L MCV 96.1 MCH 31.9 MCHC 33.2 RDW 12.9 Plt Count 192 MPV 10.6 H POC Capillary Glucose OB - PN A/P Plan day: 1 Plan: routine care Comments: patient doing well H/H , VSS, asymptomatic. continue iron supplementation continue routine care Time Spent With Patient Time: Total time spent is greater than 50% in coordination of care (as documented) at patient's floor/unit and/or counseling patient: Time with patient: less than 15 minutes Review of Systems 2 Review of Systems: All systems reviewed & are unremarkable except as noted in HPI and below Exam 2 Const: General: comfortable and no acute distress Resp: Effort & Inspection: normal respiratory effort Cardio: Rate: regular rate GI: GI Palp: Yes Soft to palpation and No Tenderness to palpation present (GI) Auscultation: normal bowel sounds Other: fundus firm and below umbilicus. Psych: Affect: normal affect
[2024-09-16 08:10] VITALS: BP 105/68; PULSE 77; RESP 16; TEMP 37.1; O2SAT 99
[2024-09-16] MEDS: DOCUSATE SODIUM 100 MG CAPSULE PO (08:59)
[2024-09-16] MEDS: POLYSACCHARIDE IRON COMPLEX 150 MG CAPSULE PO (08:59)
[2024-09-16 12:10] VITALS: BP 117/70; PULSE 101; RESP 18; TEMP 37.5; O2SAT 100
[2024-09-16] MEDS: MULTIVITS W-FE,MIN CHEWABLE TABLET 1 TABLET PO (13:17)
[2024-09-16] MEDS: ACETAMINOPHEN ELIXIR 325 MG/10.15 ML UDC 650 MG PO (13:17)
[2024-09-16] MEDS: WITCH HAZEL 40 PADS 1 PAD TOPICAL (13:19)
[2024-09-16 22:30] VITALS: BP 103/64; PULSE 66; RESP 16; TEMP 36.4; O2SAT 98
[2024-09-17 08:00] VITALS: BP 105/64; PULSE 73; RESP 18; TEMP 36.4; O2SAT 98
[2024-09-17 08:15] VITALS: PULSE 73; RESP 18; O2SAT 98
--- NOTE | 2024-09-17 08:31 | PM.OBDSVD ---
DS: Admitting Diagnosis Discharge Date 09/17/24 Admitting Diagnosis intrauterine at term DS: Discharge Diagnosis Discharge Diagnosis (1) Normal vaginal delivery: Code(s): O80 - Encounter for full-term uncomplicated delivery Status: Acute OB - DS: Summary OB Procedures : None OB Procedures Intrapartum: Spontaneous Vag Delivery OB Procedures: : None Peripartum Data Laceration Description: Labial (left) Episiotomy description: None Status at Discharge Functional status at discharge: independent ambulation Overall status at discharge: patient is back to baseline Time Spent with Patient Time attestation: Total time spent providing and/or coordinating discharge services: Time spent: Less than 30 minutes Exam Const: General: comfortable and no acute distress Resp: Effort & Inspection: normal respiratory effort Auscultation: clear to auscultation bilaterally Cardio: Rate: regular rate GI: GI Palp: Yes Soft to palpation Auscultation: normal bowel sounds Other: Fundus firm below umbilicus Psych: Appearance: grossly normal Mental Status: mental status grossly normal Affect: normal affect DS: Data Data Completed and Pending Pending studies at discharge: Pending at discharge 09/15/24 18:20 Surgical [PTH] Routine Discharge Plan Discharge Discharging Clinician: Claus Jules Patient Disposition: Home Activity: as tolerated and pelvic rest Diet: regular Patient Instructions: Antibiotic Form, Vaginal Delivery (DC) Patient Language: Stateless Stand Alone Forms: General Discharge Information Follow-up/Referrals: Beckie Pichardo MD [Physician] - Discharge Medications: New acetaminophen 500 mg tablet 500 mg PO Q6H PRN (Reason: pain) Qty: 30 0RF ibuprofen 600 mg tablet 600 mg PO Q6H PRN (Reason: pain) Qty: 30 0RF Continued ferrous sulfate [Feosol] 325 mg (65 mg iron) tablet 325 mg PO DAILY Classic 28 mg iron- 800 mcg tablet 1 tablet PO DAILY Date of admission: 09/14/24 18:38 Primary Care Provider: UNKNOWN,DOCTOR Admitting Provider: Beckie Pichardo Attending physician on admission: Beckie Pichardo Condition: Stable
[2024-09-17] MEDS: MULTIVITS W-FE,MIN CHEWABLE TABLET 1 TABLET PO (08:33)
--- NOTE | 2024-09-17 10:05 | PC.NURSE ---
Introductions were made, then consulted with patient to assess needs related to . Mother led the conversation with her?plans to feed?her infant and the?experience so far. Mother states that was provided bottles overnight and took approx. 35cc with each feed. Mother is attempting to feed at the 2 hour timeframe - discussed with mother that when infant is given supplementation at a higher volume baby may not wake to eat at the breast in 2 hours, it may be longer. Mother hasn't begun pumping, discussed the need to pump when feedings are skipped at the breast to protect her milk supply. Mother states understanding and wishes to pump at this time. Hospital breast pump provided. Instructions given on cleaning, care, usage, that there should be no pain, pumping schedule for milk production, collection, and storage of human milk. Patient was assessed for correct placement, flange size, to pump for comfort and nipple stretching/stimulation for adequate milk production. Mother voiced understanding of the education shared along with mom/baby guide and the pump measurement, flange fit handout for additional resource information. Mother will call this RN with next feeding to assist with latch. Reported to the Primary RN.
--- NOTE | 2024-09-17 13:00 | PC.NURSE ---
Called to patient bedside to assist with latch. Mother handles independently and is able to place baby in football position and latch infant. When mother latched she did feel that the latch was pinchy. This RN demonstrated getting infant to latch deeper with an asymmetrical latch. Mother states that when infants latch is deeper she feels less pain. Mother was also given cooling gel pads for her nipple discomfort.
[2024-09-19 11:21] VITALS: BP 111/73; PULSE 88; RESP 20; TEMP 37; O2SAT 99
== END 2024-09-17 18:35 | disposition home or self-care (01) | DRG 807 ==
LOC: ANHLDR 18:42 → ANHOB2 09-15 21:44
PROVIDERS: Admitting Provider Obstetrics & Gynecology; Visit Provider Student in an Organized Health Care Education/Training Program
DX: O24.429 Gestational diabetes mellitus in childbirth, unspecified control (principal); Z37.0 Single live birth; O36.5930 Maternal care for other known or suspected poor fetal growth, third trimester, not applicable or unspecified; O99.824 Streptococcus B carrier state complicating childbirth; O70.0 First degree perineal laceration during delivery; Z3A.37 37 weeks gestation of pregnancy
CPT/HCPCS: 36415; 82948; 85025; 85027; 86593; 86850; 86900; 86901; 88307; A9270; J0690; J2590; J2795; J7030; J7120

== ENCOUNTER 2024-12-20 12:19 | Emergency (ER) | payer OTHER, SELFPAY ==
--- OUTSIDE RECORDS SUMMARY | 2024-12-19 08:28 | XMS_ITS ---
Author Name Baseline Team Tawny richard [facility] Address [address] [place] [address] Phone [phone] Organization [facility] Care Team Providers Care Criminal Defense Lawyer Name Role Phone Baseline Team, [facility] Unavailable Reason for Referral Not Available Allergies, adverse reactions, alerts Allergen Type Reaction Severity Status Onset Date Amoxicillin Allergy to substance (disorder) rash Unknow n Active N/A Problem List No known problems Encounters Encounters Type Facility Date of Service Diagnosis/Co mplaint No Data Available [facility] 06/08/2023 Vital Signs Date of Collection Vitals 2023-06-08 15:00:00 Height - 154.94 cmWe ight - 49.9 kgBody Mass Index (BMI) - 20.78 kg/m2 Social History Social History Social History Observation Description Effec tive Time Current Smoking Status Never smoker 2024-11-29 2 Sex Female Gender identity Woman Functional Status No Information Mental Status No Information Assessments Date of Service Assessments 2023-06-08 15:00:00 Baseline visit Plan of Care Date of Service Plans 2023-06-08 15:00:00 Baseline visit in 1 yearSee a Primary Care Provider (PCP) for an annual preventative visit to screen for age and risk related health conditions.Other issues to discuss with your PCP:Td/TdapUp to date on all screeningsEngage in regular physical activity of 150 minutes per week.Follow a healthy diet which focuses on lean protein, healthy fats, vegetables and limits fast food and sugar.Consider regular use of sunscreen/ sun protective clothing. Have any changes in moles or new skin lesions evaluated by your PCP or a crating and moving estimator.Other: Goals Date Goal 2023-06-08 Find your partner in health. Prevention is castillo. 2023-06-08 These vaccines are u nknown or not up to date. Consider discussing the following vaccines with your PCP: 2023-06-08 Discuss the followin g cancer screenings with your PCP/healthcare team: 2023-06-08 Healthy habits = hea lthy you. 2023-06-08 Thank you for comple ting the baseline visit today with [facility]. Our goal is to provide you with a roadmap to be the healthiest version of you. Health Concerns Date Concern 2023-06-08 Baseline VisitConfir med consents are signed/name/date of / current location, which is in a state of licensure.Patient is aware they are not required to disclose information about disabilities or genetic conditions.Reviewed the purpose of the baseline visit. 2023-06-08 Preventative healthP CP: noOther providers: gyne Dr. Beckie [facility]ichardo in [facility] Preventative exam: 01/2023Last pap smear: 01/20232023-06-08 Routine vaccine stat usUp to date:Seasonal Influenza - declinesCovid- 19 - declines 2023-06-08 Upcoming surgeries/p rocedures:None
--- NOTE | ~2024-12-20 | CT_ITS ---
EXAMINATION: CT abdomen pelvis wo hetal, 12/20/2024 15:05 CDT HISTORY: kidney stone r/o COMPARISON: No comparisons available. TECHNIQUE: CT scan of the abdomen and pelvis was performed without IV contrast. One or more of the following dose reduction techniques were used: automated exposure control, adjustment of the mA and/or kV according to patient size, use of iterative reconstruction technique. Unless otherwise stated, incidental findings do not require dedicated follow up imaging FINDINGS: CT abdomen: LUNG BASES: The lung bases are clear. The visualized portions of the heart and pericardium are unremarkable. LIVER: Unremarkable, liver contours intact, no lesions. SPLEEN: Unremarkable, no splenomegaly. KIDNEYS: Right Kidney: Mild right hydronephrosis and hydroureter due to an obstructing distal ureteral 2 x 2 millimeter calculus. Left Kidney: Unremarkable. No calculi. No hydronephrosis ADRENAL GLANDS: Unremarkable. PANCREAS: Unremarkable. GALLBLADDER/BILIARY: Unremarkable. No biliary dilatation. STOMACH AND ESOPHAGUS: Visualized stomach and esophagus within normal limits. BOWEL/MESENTERY: Moderate fecal content, no colitis or diverticulitis. Appendix normal. Mesentery normal. Small bowel normal. ADENOPATHY/RETROPERITONEUM: No lymphadenopathy. AORTA/VASCULATURE: Normal caliber aorta. FREE FLUID OR FREE AIR: None. CT pelvis: SOLID ORGANS/REPRODUCTIVE: Unremarkable. BLADDER: Within normal limits. OSSEOUS STRUCTURES: No acute osseous abnormality.No suspicious lesions. OVERLYING SOFT TISSUES: Unremarkable. IMPRESSION: 1. Right-sided obstructive uropathy Reviewed, dictated and finalized at location A.
[2024-12-20 12:22] VITALS: BP 116/71; PULSE 124; RESP 18; TEMP 36.8; O2SAT 100
--- OUTSIDE RECORDS SUMMARY | 2024-12-20 12:36 | XMS_ITS | Clinical Summary ---
Author Organization [facility] Address [address] [place] [address] Care Team Providers Care Director Of Event Sales Name Role Phone Unknown, Provider Primary Care Provider Unavaila ble Source Comments [facility],non-owned Affiliates and Associated Physician Practices is amultiple site organization consisting of ambulatory clinics and hospital sitesin [place], [place], [place] and [place]. This disclosure is being madepursuant to the Care Everywhere program and may not contain all information available regarding this patient. Last updated 17.[facility] [employer] Allergies Active Allergy Reactions Criticality Noted Date [...] Date Gestational diabetes mellitus (GDM) in third [facility] 08/09/2024 Estimated Date of Delivery Comme nts Yes 10/02/2024 Based on last me nstrual period of 12/27/2023 Encounters Date Type Department Care Team Description 09/21/2024 Telephone [facility] [address] [place] [address] Rhonda Donnelly RN Update (Call dr. Pichardo office to see if patient delivered. Beckie from [place] office said patient delivered on 09/15/24.) from Last 3 Months Social History Tobacco [...] and heating? Not hard at all 08/12/2024 [facility] - Occupational Stress [...] money to buy more. 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 Gender Identity Not on file Sexual Orientation [...] 19+ 3-dose series) 09/04/2011 PAP SMEAR 2013 HPV VACCINE (1 - 3-dose SCDM series) 09/04/2019 DEPRESSION SCREENING 03/30/2024 OB-ONE HOUR GLUCOSE 06/26/2024 OB-TDAP CURRENT 07/03/2024 OB-RHOGAM INJECTION 07/10/2024 OB-GROUP B STREP SCREEN 08/28/2024 COVID-19 VACCINE (1 - 2023-2 5 season) 2024 INFLUENZA VACCINE (#1) 2024 ZOSTER VACCINE (1 of 2) 2042 [...] over 60 yrs (No Doses Required) Completed Insurance [employer]ER[employer] GENERIC Member Subscriber Plan / Payer (Ef fective 2024-Present) Name:Ehsan Medel Relation to Subscriber:Self Name:Ehsan Medel Payer ID:Not on file Group ID:Not on file Type:Commercial Address: [address] SELF PAY NO INSURANCE Member Subscriber Plan / Payer (Ef fective for All Dates) Name:Ehsan Medel Member ID:Not on file Relation to Subscriber:Not on file Name:EHSAN MEDEL Subscriber ID:Not on file (Home) Address: [address] [place] [id number] Payer ID:Not on file Group ID:Not on file Type:Self Pay Address: [place], [place] Care Teams Director Of Event Sales Relationship Specialty Start Date End Date Unknown, Provider PCP - General 07/28/24
--- NOTE | 2024-12-20 14:44 | ED_ITS ---
HPI - General Adult General Chief complaint: Abdominal Pain <Erna Pierre July, COMPUTER AIDED DESIGN OPERATOR - Last Filed: 12/21/24 19:38> Stated complaint: kidney stone <Erna Pierre July, COMPUTER AIDED DESIGN OPERATOR - Last Filed: 12/21/24 19:38> Time Seen by Provider: 12/20/24 14:44 <Erna Pierre July, COMPUTER AIDED DESIGN OPERATOR - Last Filed: 12/21/24 19:38> Focused HPI: Kristen Medel is a 34 y/o female who presents today wtih reports of having pain to her flank that started at 0700, then pain got a lot worse and couldn't sit still, she had nausea vomiting, emesis x 2 when the pain was the worst between 07-1200 now the pain is just dull No belly pain GENERAL: Well-appearing, well-nourished, and in no acute distress. HEAD: Normocephalic, atraumatic. CHEST: Clear to auscultation. ?No respiratory distress. HEART: Regular rate and rhythm.? NEURO: ?Alert and oriented x3. Patient screened in triage and initial orders placed.? ?Additional care and disposition to be based upon?diagnostic testing and treatment. <Erna Pierre July, COMPUTER AIDED DESIGN OPERATOR - Last Filed: 12/21/24 19:38> Focused HPI: Kristen Medel is a 34 y/o female who presents today with reports of having pain to her flank that started at 0700, then pain got a lot worse and couldn't sit still, she had nausea, vomiting, emesis x 2 when the pain was the worst between 07-1200 now the pain is just dull. Denies abdominal pain. GENERAL: Well-appearing, well-nourished, and in no acute distress. HEAD: Normocephalic, atraumatic. CHEST: Clear to auscultation. ?No respiratory distress. HEART: Regular rate and rhythm.? NEURO: ?Alert and oriented x3. Patient screened in triage and initial orders placed.? ?Additional care and disposition to be based upon?diagnostic testing and treatment. <Alexa Sinclair PA-C - Last Filed: 12/20/24 19:38> Related Data Home medications: Home Medications ?Medication ?Instructions ?Recorded ?Confirmed ?Last Taken ?Type vits no.126-ferrous fum 1 tablet PO DAILY 10/13/24 09/05/24 History 28 mg iron-folic acid 800 mcg tablet (Classic ) <Erna Bhatia, - Last Filed: 12/21/24 19:38> Allergies/adverse reactions: Allergies Allergy/AdvReac Type Severity Reaction Status Date / Time amoxicillin Allergy Severe Hives Verified 12/20/24 12:20 <Erna Bhatia - Last Filed: 12/21/24 19:38> Review of Systems 2 Review of Systems: All systems reviewed & are unremarkable except as noted in HPI and below <Alexa Sinclair PA-C - Last Filed: 12/20/24 19:38> PMFSH Past Medical History Medical History: Medical History Gestational diabetes Suppression of menses <Erna Bhatia - Last Filed: 12/21/24 19:38> Family History Family History: Family History Other Unknown family medical history <Erna Bhatia - Last Filed: 12/21/24 19:38> Social History Social History: Social History Smoking status: Never smoker Alcohol intake: never Substance use: never Substance use type: does not use Do You Feel Safe in your Home?: Yes Lack of Transportation: No Lack of Food: Never True Current Housing: I Have Housing Concerned About Future Housing: No Difficulty Paying Gas/Electric Bills: No Difficulty Paying for Meds: No Currently Unemployed: No Education: Bachelor's Degree Difficulty w/ Childcare or Family Care: No Living arrangements: with family Occupation/Education: occupation 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 HEAD: Normocephalic, atraumatic. EYES: EOMI. CHEST: Clear to auscultation. No respiratory distress. No wheezes rales or rhonchi HEART: Regular rate and rhythm. No murmur heard. Normal peripheral pulses. ABDOMEN: Soft, nontender, nondistended, normal active bowel sounds. EXTREMITIES: Normal range of motion. No edema. SKIN: Warm, dry, no rash. NEURO: No focal deficits. Alert and oriented x3. PSYCH: Normal mood and affect <Alexa Sinclair PA-C - Last Filed: 12/20/24 19:38> Course Course Emergency Course: Patient updated on her workup, resting comfortably <Alexa Sinclair PA-C - Last Filed: 12/20/24 19:38> Vital Signs Vital signs: Vital Signs Temperature 36.8 C 12/20/24 12:22 Pulse Rate 124 H 12/20/24 12:22 Respiratory Rate 18 12/20/24 12:22 Blood Pressure 116/71 12/20/24 12:22 Pulse Oximetry 100 12/20/24 12:22 Temperature 36.8 C 12/20/24 15:24 Pulse Rate 99 12/20/24 19:26 Respiratory Rate 16 12/20/24 19:26 Blood Pressure 104/72 12/20/24 19:26 Pulse Oximetry 99 12/20/24 19:26 <Erna Bhatia, COMPUTER AIDED DESIGN OPERATOR - Last Filed: 12/21/24 19:38> Vital Signs Temperature 36.8 C 12/20/24 12:22 Pulse Rate 124 H 12/20/24 12:22 Respiratory Rate 18 12/20/24 12:22 Blood Pressure 116/71 12/20/24 12:22 Pulse Oximetry 100 12/20/24 12:22 Temperature 36.8 C 12/20/24 15:24 Pulse Rate 99 12/20/24 19:26 Respiratory Rate 16 12/20/24 19:26 Blood Pressure 104/72 12/20/24 19:26 Pulse Oximetry 99 12/20/24 19:26 <Alexa Sinclair PA-C - Last Filed: 12/20/24 19:38> Medical Decision Making MDM Narrative Medical decision making narrative: Patient presents the emergency department for right flank, lower abdominal pain. Tachycardic upon arrival, this normalized with IV fluids. She is afebrile and nontoxic appearing. CBC with mild leukocytosis to 11.8. Metabolic panel with normal appearing kidney function. Urine without evidence of infection, shows red blood cells. CT abdomen and pelvis shows right-sided obstructive uropathy due to a 2 mm distal ureteral stone. Patient updated on her workup, resting comfortably. She is to follow up with Urology. She was given warnings to return to the ER <Alexa Sinclair PA-C - Last Filed: 12/20/24 19:38> Differential Diagnosis Differential Diagnosis: kidney stone, UTI <Alexa Sinclair PA-C - Last Filed: 12/20/24 19:38> Vital Signs Vital Signs: Vital Signs Temperature 36.8 C 12/20/24 12:22 Pulse Rate 124 H 12/20/24 12:22 Respiratory Rate 18 12/20/24 12:22 Blood Pressure 116/71 12/20/24 12:22 Pulse Oximetry 100 12/20/24 12:22 Temperature 36.8 C 12/20/24 15:24 Pulse Rate 99 12/20/24 19:26 Respiratory Rate 16 12/20/24 19:26 Blood Pressure 104/72 12/20/24 19:26 Pulse Oximetry 99 12/20/24 19:26 <Erna Bhatia, COMPUTER AIDED DESIGN OPERATOR - Last Filed: 12/21/24 19:38> Vital Signs Temperature 36.8 C 12/20/24 12:22 Pulse Rate 124 H 12/20/24 12:22 Respiratory Rate 18 12/20/24 12:22 Blood Pressure 116/71 12/20/24 12:22 Pulse Oximetry 100 12/20/24 12:22 Temperature 36.8 C 12/20/24 15:24 Pulse Rate 99 12/20/24 19:26 Respiratory Rate 16 12/20/24 19:26 Blood Pressure 104/72 12/20/24 19:26 Pulse Oximetry 99 12/20/24 19:26 <Alexa Sinclair PA-C - Last Filed: 12/20/24 19:38> Lab Data Lab results reviewed: Yes I reviewed the patient's lab results. <Alexa Sniclair PA-C - Last Filed: 12/20/24 19:38> Result diagrams: 12/20/24 14:56 12/20/24 14:56 <Erna Bhatia, COMPUTER AIDED DESIGN OPERATOR - Last Filed: 12/21/24 19:38> Labs: Lab Results 12/20/24 Range/Units 14:56 WBC 11.8 H (4.5-10.0) K/mm3 RBC 4.04 L (4.2-5.4) M/mm3 Hgb 12.2 (12.0-15.0) g/dL Hct 36.3 L (37.0-47.0) % MCV 89.9 (80-100) fl MCH 30.2 (26-34) pg MCHC 33.6 (32-36) g/dl RDW 13.2 (11.5-14.5) % Plt Count 232 (150-375) k/mm3 MPV 10.0 (7.4-10.4) fl Immature Gran % (Auto) 0.3 (0-0.5) % Neut % (Auto) 90.0 H (45.5-73.1) % Lymph % (Auto) 6.9 L (18.3-44.2) % Coos % (Auto) 2.4 L (2.6-8.5) % Eos % (Auto) 0.1 (0-4.4) % Baso % (Auto) 0.3 (0.2-1.2) % Lymph # (Auto) 0.81 L (0.9-3.2) K/mm3 Coos # (Auto) 0.3 (0.1-0.6) K/mm3 Eos # (Auto) 0.0 (0-0.3) K/mm3 Baso # (Auto) 0.0 (0.0-0.1) K/mm3 Abs Immat Gran (auto) 0.04 H (0.00-0.031) K/mm3 Absolute Neuts (auto) 10.7 H (1.3-6.7) K/mm3 Absolute Nucleated RBC 0.000 (0.0-0.012) K/mm3 Nucleated RBC % 0.0 (0.0-0.2) % Sodium 139 (137-145) mmol/L Potassium 3.7 (3.4-5.0) mmol/L Chloride 104 (98-107) mmol/L Carbon Dioxide 24 (22-30) mmol/L Anion Gap 11 (4-12) mmol/L BUN 9 (7-17) mg/dL Creatinine 0.62 L (0.7-1.0) mg/dL Estim Creat Clear Calc 84 ml/min Estimated GFR > 60 (59 - ) Glucose 141 H (65-110) mg/dL Calcium 9.1 (8.4-10.2) mg/dL Total Bilirubin 0.7 (0.2-1.3) mg/dL AST 50 H (14-36) U/L ALT 45 H (6-35) U/L Alkaline Phosphatase 65 (38-126) U/L Total Protein 7.9 (6.3-8.2) g/dL Albumin 4.6 (3.5-5.1) g/dL Urine Color Yellow (Yellow) Urine Appearance Cloudy H (Clear) Urine pH 8.0 (5.0-9.0) Ur Specific [place] 1.021 (1.001-1.035) Urine Protein Trace (Negative) mg/dL Urine Glucose (UA) Negative (Negative) mg/dL Urine Ketones 2+ H (Negative) mg/dL Ur Blood (Man) 2+ H (Negative) Urine Nitrate Negative (Negative) Urine Bilirubin Negative (Negative) Urine Urobilinogen 1.0 (<2.0) mg/dL Add Ur Microanalysis Reviewed Leukocyte Esterase Rfl 1+ H (Negative) ABRAM/UL Urine RBC 51-100 H (0-2) /hpf Urine WBC 0-5 (0-3) /hpf Ur Squamous Epith Cells Moderate (Few) /hpf Urine Bacteria 2+ H /hpf Urine Casts 0-2 POC Urine HCG, Qual Negative (Negative) <Erna Bhatia, COMPUTER AIDED DESIGN OPERATOR - Last Filed: 12/21/24 19:38> Lab Results 12/20/24 Range/Units 14:56 WBC 11.8 H (4.5-10.0) K/mm3 RBC 4.04 L (4.2-5.4) M/mm3 Hgb 12.2 (12.0-15.0) g/dL Hct 36.3 L (37.0-47.0) % MCV 89.9 (80-100) fl MCH 30.2 (26-34) pg MCHC 33.6 (32-36) g/dl RDW 13.2 (11.5-14.5) % Plt Count 232 (150-375) k/mm3 MPV 10.0 (7.4-10.4) fl Immature Gran % (Auto) 0.3 (0-0.5) % Neut % (Auto) 90.0 H (45.5-73.1) % Lymph % (Auto) 6.9 L (18.3-44.2) % Coos % (Auto) 2.4 L (2.6-8.5) % Eos % (Auto) 0.1 (0-4.4) % Baso % (Auto) 0.3 (0.2-1.2) % Lymph # (Auto) 0.81 L (0.9-3.2) K/mm3 Coos # (Auto) 0.3 (0.1-0.6) K/mm3 Eos # (Auto) 0.0 (0-0.3) K/mm3 Baso # (Auto) 0.0 (0.0-0.1) K/mm3 Abs Immat Gran (auto) 0.04 H (0.00-0.031) K/mm3 Absolute Neuts (auto) 10.7 H (1.3-6.7) K/mm3 Absolute Nucleated RBC 0.000 (0.0-0.012) K/mm3 Nucleated RBC % 0.0 (0.0-0.2) % Sodium 139 (137-145) mmol/L Potassium 3.7 (3.4-5.0) mmol/L Chloride 104 (98-107) mmol/L Carbon Dioxide 24 (22-30) mmol/L Anion Gap 11 (4-12) mmol/L BUN 9 (7-17) mg/dL Creatinine 0.62 L (0.7-1.0) mg/dL Estim Creat Clear Calc 84 ml/min Estimated GFR > 60 (59 - ) Glucose 141 H (65-110) mg/dL Calcium 9.1 (8.4-10.2) mg/dL Total Bilirubin 0.7 (0.2-1.3) mg/dL AST 50 H (14-36) U/L ALT 45 H (6-35) U/L Alkaline Phosphatase 65 (38-126) U/L Total Protein 7.9 (6.3-8.2) g/dL Albumin 4.6 (3.5-5.1) g/dL Urine Color Yellow (Yellow) Urine Appearance Cloudy H (Clear) Urine pH 8.0 (5.0-9.0) Ur Specific [place] 1.021 (1.001-1.035) Urine Protein Trace (Negative) mg/dL Urine Glucose (UA) Negative (Negative) mg/dL Urine Ketones 2+ H (Negative) mg/dL Ur Blood (Man) 2+ H (Negative) Urine Nitrate Negative (Negative) Urine Bilirubin Negative (Negative) Urine Urobilinogen 1.0 (<2.0) mg/dL Add Ur Microanalysis Reviewed Leukocyte Esterase Rfl 1+ H (Negative) ABRAM/UL Urine RBC 51-100 H (0-2) /hpf Urine WBC 0-5 (0-3) /hpf Ur Squamous Epith Cells Moderate (Few) /hpf Urine Bacteria 2+ H /hpf Urine Casts 0-2 POC Urine HCG, Qual Negative (Negative) <Alexa Sinclair PA-C - Last Filed: 12/20/24 19:38> Imaging Data Radiologist's impression: ITS Impressions Abdomen/Pelvis CT 12/20/24 15:12 IMPRESSION: 1. Right-sided obstructive uropathy <Alexa Sinclair PA-C - Last Filed: 12/20/24 19:38> Critical Care Time Critical Care Time Critical Care Time: No <Alexa Sinclair PA-C - Last Filed: 12/20/24 19:38> Discharge Plan Discharge Clinical Impression: Ureterolithiasis <Erna Bhatia APRN - Last Filed: 12/21/24 19:38> Patient Disposition: Home <Erna hBatia APRN - Last Filed: 12/21/24 19:38> Condition: Stable <Erna Bhatia APRN - Last Filed: 12/21/24 19:38> Instructions: Kidney Stones (ED), How to Strain Your Urine (ED) <Erna Bhatia APRN - Last Filed: 12/21/24 19:38> Additional Instructions: Return to the ER if you experience fever, abdominal pain with nausea and vomiting, you are unable to keep down liquids or solids, blood in the stool, pain or burning with urination, blood in the urine or any other symptoms that are concerning to you Remain well hydrated. Over the counter pain medication as needed. Prescribed pain medication as needed. Strain your urine. Take Tamsulosin as prescribed Follow up with urology <Erna Bhatia, COMPUTER AIDED DESIGN OPERATOR - Last Filed: 12/21/24 19:38> Patient Language: Armenian <Erna Bhatia, COMPUTER AIDED DESIGN OPERATOR - Last Filed: 12/21/24 19:38> Prescriptions: New tamsulosin 0.4 mg capsule 0.4 mg PO DAILY 7 Days Qty: 7 0RF hydrocodone-acetaminophen 5-325 mg tablet 1 tablet PO Q6H PRN (Reason: pain) Qty: 20 0RF No Action Classic 28 mg iron- 800 mcg tablet 1 tablet PO DAILY ibuprofen 600 mg tablet 600 mg PO Q6H PRN (Reason: pain) Qty: 30 0RF <Erna Bhatia, COMPUTER AIDED DESIGN OPERATOR - Last Filed: 12/21/24 19:38> Follow-up/Referrals: PHYSICIAN NOT ON STAFF,NONSTAFF [Primary Care Provider] Rey Fountain MD [Physician, Urology] <Erna Bhatia, COMPUTER AIDED DESIGN OPERATOR - Last Filed: 12/21/24 19:38>
[2024-12-20 14:58] LABS: BEDSIDEPREGUCG Negative (Negative)
--- OUTSIDE RECORDS SUMMARY | 2024-12-20 15:00 | XMS_ITS | Clinical Summary ---
Author Organization [facility] Address [address] [place] [address] Care Team Providers Care Chargemaster Specialist Name Role Phone Unknown, Provider Primary Care Provider Unavaila ble Source Comments [facility],non-owned Affiliates and Associated Physician Practices is amultiple site organization consisting of ambulatory clinics and hospital sitesin [place], [place], [place] and [place]. This disclosure is being madepursuant to the Care Everywhere program and may not contain all information available regarding this patient. Last updated 17.[facility] [employer] Allergies Active Allergy Reactions Criticality Noted Date [...] Date Gestational diabetes mellitus (GDM) in [facility] 08/09/2024 Estimated Date of Delivery Comme nts Yes 10/02/2024 Based on last me nstrual period of 12/27/2023 Encounters Date Type Department Care Team Description 09/21/2024 Telephone [facility] Women's Health Maternal & Care [address] [place] [address] Rhonda Donnelly RN Update (Call [...] at all 08/12/2024 [facility] [place] [facility] Occupat ional Health - Occupational Stress [...] on file 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
[2024-12-20 15:02] LABS: Hematocrit 36.3 % (37.0-47.0); Hemoglobin 12.2 g/dL (12.0-15.0); Immature Granulocyte Percent A 0.3 % (0-0.5); Lymphocytes Absolute Auto 0.81 K/mm3 (0.9-3.2); Mean Corpuscular HGB Conc 33.6 g/dl (32-36); Mean Corpuscular Hemoglobin 30.2 pg (26-34); Mean Corpuscular Volume 89.9 fl (80-100); Nucleated Red Blood Cells Absolute Auto 0.000 K/mm3 (0.0-0.012); Nucleated Red Blood Cells Perc 0.0 % (0.0-0.2); Platelet Count Result 232 k/mm3 (150-375); Red Blood Count 4.04 M/mm3 (4.2-5.4); White Blood Count 11.8 K/mm3 (4.5-10.0)
[2024-12-20 15:12] LABS: Alanine Aminotransferase 45 U/L (6-35); Albumin Level 4.6 g/dL (3.5-5.1); Alkaline Phosphatase 65 U/L (38-126); Anion Gap 11 mmol/L (4-12); Aspartate Amino Transferase 50 U/L (14-36); Bilirubin,Total 0.7 mg/dL (0.2-1.3); Blood Urea Nitrogen 9 mg/dL (7-17); Calcium 9.1 mg/dL (8.4-10.2); Carbon Dioxide 24 mmol/L (22-30); Chloride 104 mmol/L (98-107); Estimated CRCL calculation 84 ml/min; Estimated Glomerular Filt Rate > 60; Glucose 141 mg/dL (65-110); Potassium 3.7 mmol/L (3.4-5.0); Sodium 139 mmol/L (137-145); Total Protein 7.9 g/dL (6.3-8.2)
[2024-12-20 15:17] LABS: Add Urine Microscopic? YES; Appearance Urine Cloudy (Clear); Glucose Urine UA Negative (Negative); Leukocyte Esterase Ur 1+ LEU/UL (Negative); Need Manual Microscopic Reviewed; Nitrate Urine Negative (Negative); Non Pathogenic Casts 0-2; Specific Grav Ur 1.021 (1.001-1.035)
[2024-12-20 15:24] VITALS: BP 103/67; PULSE 106; RESP 16; TEMP 36.8; O2SAT 100
[2024-12-20] MEDS: SODIUM CHLORIDE 0.9% IV 1,000 ML 999 ML IV CONT (18:37)
[2024-12-20] MEDS: KETOROLAC 30 MG/ML VIAL (*BKC) IV PUSH (18:37)
[2024-12-20 19:26] VITALS: BP 104/72; PULSE 99; RESP 16; O2SAT 99
== END 2024-12-20 20:18 | disposition home or self-care (01) ==
PROVIDERS: Nurse Practitioner Family; Emergency Provider Physician Assistant
DX: N20.1 Calculus of ureter (principal)
CPT/HCPCS: 36415; 74176; 80053; 81001; 81025; 85025; 96361; 96374; 99284; J1885; J7030